=== PATIENT | female | born 1965 | race African-American/Black ===

== ENCOUNTER 2023-10-09 13:12 | Outpatient (AMB) | payer OTHER, SELFPAY ==
--- NOTE | 2023-10-09 13:15 | MHC.OFFVIS ---
Intake Vital Signs 10/09/23 13:27 Height 5 ft 7 in Weight 240 lb 8 oz BMI 37.7 BP 124/76 Blood Pressure Location Lt brachial Position Sitting Respiration 17 Pulse 62 Pulse Source Pulse Oximeter Pulse Oximetry (%) 96 Oxygen Delivery Method Room Air Intake Visit Reasons: E-OUTREACH REPRESENTATIVE: Meralgia Peresthetica on L. thigh-Conf Intake Note: Pt presents to the office for new pt evaluation for Meralgia paresthetica. Alcohol Still Operator Required: No Allergies Penicillins Allergy (Intermediate, Verified 10/09/23 13:23) Rash Medication List - Last Reconciled 10/09/23 by Motnserrat Dahl MD amlodipine 5 mg PO DAILY bupropion HCl 150 mg PO QAM cetirizine 10 mg PO DAILY PRN levothyroxine 175 mcg PO DAILY meclizine 25 mg PO DAILY PRN HPI HPI Comments History of Present Illness Details 58y/o female comes for evaluation of left thigh numbness and tingling that started about 6 months ago. It is episodic and is usually worse when she walks . she says its mostly in the upper lateral and anterior thigh. SHe also reports intermittent burning sensation.she thought that it was shingles but she did not have a rash . she denies weakness or any shooting pain from the back. she also has occasional lower back pain and stiffness. Rest usually helps with the left thigh numbness . Occasionally she wakes up in the middle of the night. she had started to exercise and walk more about 7 months ago . she denies wearing any tight clothes. she also has loud snoring , morning fatigue and daytime sleepiness. [facility] Medical History (Updated 10/09/23 @ 14:13 by Montserrat Dahl MD) Hypersomnia Snoring Meralgia paresthetica of left side Anxiety Depression Hyperlipidemia Hypothyroidism HTN (hypertension) Prediabetes Colonic polyp Osteoarthritis Obesity Carpal tunnel syndrome Surgical History H/O colonoscopy Hx of tubal ligation History of ankle surgery Family History Father No problems noted. Mother No problems noted. Social History Household Members: Family Housing: House Alcohol intake: current Alcohol intake frequency: a few times a month Patient Tobacco Use Status: Never used Tobacco Physical Exam Vital Signs: Last Vital Signs Pulse 62 10/09/23 13:27 Resp 17 10/09/23 13:27 BP 124/76 10/09/23 13:27 Pulse Ox 96 10/09/23 13:27 Oxygen Delivery Method Room Air 10/09/23 13:27 BMI result Body Mass Index 37.7 Const General: cooperative, healthy appearing and comfortable Nutritional Appearance: obese Orientation/consciousness: patient oriented x3 Eyes Pupils: Equal, round and reactive pupils present Neuro Other: left lateral thing mild dysthesias in the mid thigh region Mallampatti grade 4 General: patient oriented x3, gait normal, tone normal, moves all extremities and no focal motor deficits Cranial nerves: Yes Facial sensation intact/muscles of mastication intact, Yes Equal, round and reactive pupils present, Yes Bilaterally intact EOM present, Yes Nystagmus not present, Yes Normal facial strength present and Yes Symmetric palate elevation present Cognition (Neuro): normal cognition Gait exam (Neuro): Normal gait present Motor exam (neuro): 5/5 motor strength present throughout and Normal motor muscle tone present throughout Deep tendon reflexes (DTR's): Right triceps reflex intensity grade: 1+, Left triceps reflex intensity grade: 1+, Rt Biceps (C5, C6): 1+, Left biceps reflex intensity grade: 1+, Right brachioradialis reflex intensity grade: 1+, Left brachioradialis reflex intensity grade: 1+, Right patellar reflex intensity grade: 1+ and Left patellar reflex intensity grade: 1+ Coordination: [id number] test normal Assessment & Plan Assessment & Plan (1) Meralgia paresthetica of left side: Code(s): G57.12 - Meralgia paresthetica, left lower limb (2) Snoring: Code(s): R06.83 - Snoring (3) Hypersomnia: Code(s): G47.10 - Hypersomnia, unspecified Plan Her symptoms are mild. I suggested wearing loose fitting clothes and some exercises and will monitor I will schedule her for home sleep test to r/o sleep apnea. Orders: Orders RT home sleep study Today G47.10 - Hypersomnia, unspecified, R06.83 - Snoring Coding Level of Care Code New Pt Level 4 (24030) Diagnoses Meralgia paresthetica of left side G57.12 Snoring R06.83 Hypersomnia G47.10
[2023-10-09 13:27] VITALS: BP 124/76; PULSE 62; RESP 17; O2SAT 96; BMI 37.7
== END 2023-10-09 14:08 | disposition home or self-care (01) ==
PROVIDERS: PCP Internal Medicine; Referring Provider Internal Medicine; Visit Provider Psychiatry & Neurology Neurology
DX: G57.12 Meralgia paresthetica, left lower limb (principal); R06.83 Snoring; G47.10 Hypersomnia, unspecified
CPT/HCPCS: 99204

== ENCOUNTER → 2023-10-09 13:12 | Outpatient (BNVA) | payer OTHER, SELFPAY | PROVIDERS: PCP Internal Medicine; Referring Provider Internal Medicine; Visit Provider Psychiatry & Neurology Neurology | DX: G57.12 Meralgia paresthetica, left lower limb (principal); R06.83 Snoring; G47.10 Hypersomnia, unspecified | CPT/HCPCS: 99202 ==

== ENCOUNTER → 2023-11-14 15:07 | Outpatient (REF) | payer OTHER, SELFPAY | LOC: HO.SL 15:07 | PROVIDERS: PCP Student in an Organized Health Care Education/Training Program; Visit Provider Psychiatry & Neurology Neurology | DX: G47.33 Obstructive sleep apnea (adult) (pediatric) (principal); G47.10 Hypersomnia, unspecified; R06.83 Snoring | CPT/HCPCS: 95806 ==

== ENCOUNTER → 2023-11-14 15:26 | Outpatient (BNV) | payer OTHER, SELFPAY | PROVIDERS: PCP Student in an Organized Health Care Education/Training Program; Visit Provider Internal Medicine | DX: G47.33 Obstructive sleep apnea (adult) (pediatric) (principal) | CPT/HCPCS: 95806 ==

== ENCOUNTER 2024-06-13 13:04 | Outpatient (AMB) | payer MEDICAID, SELFPAY ==
--- NOTE | 2024-06-13 13:42 | MHC.OFFVIS ---
Vital Signs 06/13/24 13:43 Height 5 ft 7 in Weight 246 lb BMI 38.5 Intake Visit Reasons: 4 mo f/u Meralgia peresthtica on L.tight Intake Note: Patient presents for 4 month follow up. patient couldn't do the machine patient informed to take it back. Allergies Penicillins Allergy (Intermediate, Verified 06/13/24 13:45) Rash HPI Comments Details: 58-yr-old female presents for f/u visit. Pt denies any significant interval medical changes. Pt reports she is no longer having left thigh paresthesias. She was walking, exercising more but her right ankle hardware was bothering her so has not been walking as much. She had HST which showed mild JEREMY w/ AHI 12/hr and average SpO2 94% w/ O2 han 75% (SpO2 < 88% x's 8 min)- pt slept supine for entire study. She tried APAP, but has not been tolerating full face mask. Note she used to sleep prone or on her side, but since the HST and during the HST- she has been sleeping on her back. [facility] Medical History Hypersomnia Snoring Meralgia paresthetica of left side Anxiety Depression Hyperlipidemia Hypothyroidism HTN (hypertension) Prediabetes Colonic polyp Osteoarthritis Obesity Carpal tunnel syndrome Surgical History H/O colonoscopy Hx of tubal ligation History of ankle surgery Family History Father No problems noted. Mother No problems noted. Social History Household Members: Family Housing: House Alcohol intake: current Alcohol intake frequency: a few times a month Patient Tobacco Use Status: Never used Tobacco Physical Exam Vital Signs: BMI result Body Mass Index 38.5 Const General: cooperative and no acute distress Orientation/consciousness: patient oriented x3 Resp Effort & Inspection: normal respiratory effort and able to speak in complete sentences Neuro General: patient oriented x3 Cranial nerves: Yes CN's II-XII intact bilaterally Cognition (Neuro): normal cognition Psych Appearance: grossly normal Mental Status: mental status grossly normal Speech and movement: Normal speech and movement present Affect: normal affect Attitude: cooperative Assessment & Plan Assessment & Plan (1) Mild obstructive sleep apnea: Code(s): G47.33 - Obstructive sleep apnea (adult) (pediatric) Category: Medical (2) Meralgia paresthetica of left side: Code(s): G57.12 - Meralgia paresthetica, left lower limb Category: Medical Plan Try using APAP [id number] with sleeping on her side or in prone position. If this is not helpful, pt may return PAP machine. Advised to sleep prone or in lateral postion, and try weight loss as even a 10% wt reduction can reduce JEREMY s/s- discussed trying orthopedic sneakers to improve activity tolerance. Monitor left thigh paresthesias- no current symptoms. Coding Level of Care Code Est Pt Level 3 (90022) Diagnoses Mild obstructive sleep apnea G47.33 Meralgia paresthetica of left side G57.12
[2024-06-13 13:43] VITALS: BMI 38.5
== END 2024-06-13 14:20 | disposition home or self-care (01) ==
PROVIDERS: Absent Provider Nurse Practitioner Family; PCP Internal Medicine; Visit Provider Nurse Practitioner Family
DX: G47.33 Obstructive sleep apnea (adult) (pediatric) (principal); G57.12 Meralgia paresthetica, left lower limb
CPT/HCPCS: 99213

== ENCOUNTER → 2024-06-13 13:04 | Outpatient (BNVA) | payer MEDICAID, SELFPAY | PROVIDERS: Absent Provider Nurse Practitioner Family; PCP Internal Medicine; Visit Provider Nurse Practitioner Family | DX: G47.33 Obstructive sleep apnea (adult) (pediatric) (principal); Z99.89 Dependence on other enabling machines and devices | CPT/HCPCS: 99212 ==

== ENCOUNTER 2024-12-10 14:27 | Outpatient (AMB) | payer MEDICARE, SELFPAY ==
--- NOTE | 2024-12-10 14:31 | A.OFFVIS_ITS ---
Vital Signs 12/10/24 14:32 Height 5 ft 7 in Weight 250 lb BMI 39.2 BP 126/70 Blood Pressure Location Rt brachial Position Sitting Pulse 72 Pulse Source Pulse Oximeter Pulse Oximetry (%) 98 Oxygen Delivery Method Room Air Intake Visit Reasons: Follow up Intake Note: Patient presents follow up JEREMY. non compliant Purification Director Required: No Accompanied by: Self / Same As Patient Allergies Penicillins Allergy (Intermediate, Verified 06/13/24 13:45) Rash Medication List - Last Reconciled 12/10/24 by AMADO Cortez amlodipine 5 mg PO DAILY bupropion HCl XL 150 mg PO QAM cetirizine 10 mg PO DAILY PRN levothyroxine 175 mcg PO DAILY meclizine 25 mg PO DAILY PRN HPI Comments Details: Chief Complaint Follow-up for sleep apnea and previous issues and left thigh paresthesia. Interval History - The patient is a 59 year old female presenting with follow-up for obstructive sleep apnea and left thigh paresthesia. - Denies new health issues, hospitalizations. - Obstructive Sleep Apnea: Previous issues with CPAP machine noted- she did not tolerate wearing a CPAP mask. . Patient has not used the CPAP, since last visit, as she thought that I had told her she did not need to use the CPAP if she slept on her side or on her stomach. I clarified that at the last visit, I suggested she try using the CPAP while sleeping on her side. The previous sleep study showed mild sleep apnea, however patient slept in the supine position throughout the study, where she normally sleeps in a lateral or prone position- thus the prior HST likely does not accurately effect the degree of sleep apnea patient is experiencing on a night tonight basis. 11/14/2023, HST which showed mild JEREMY w/ AHI 12/hr and average SpO2 94% w/ O2 han 75% (SpO2 < 88% x's 8 min)- pt slept supine for entire study. - Left Thigh Paresthesia: Reports numbness and tingling have recurred since the last consultation. [facility] Medical History Hypersomnia Snoring Meralgia paresthetica of left side Anxiety Depression Hyperlipidemia Hypothyroidism HTN (hypertension) Prediabetes Colonic polyp Osteoarthritis Obesity Carpal tunnel syndrome Surgical History H/O colonoscopy Hx of tubal ligation History of ankle surgery Family History Father No problems noted. Mother No problems noted. Social History Household Members: Family Housing: House Alcohol intake: current Alcohol intake frequency: a few times a month Patient Tobacco Use Status: Never used Tobacco Physical Exam Vital Signs: Last Vital Signs Pulse 72 12/10/24 14:32 BP 126/70 12/10/24 14:32 Pulse Ox 98 12/10/24 14:32 Oxygen Delivery Method Room Air 12/10/24 14:32 BMI result Body Mass Index 39.2 Const General: cooperative and no acute distress Orientation/consciousness: patient oriented x3 Resp Effort & Inspection: normal respiratory effort and able to speak in complete sentences Neuro General: patient oriented x3 Cranial nerves: Yes CN's II-XII intact bilaterally Cognition (Neuro): normal cognition Psych Appearance: grossly normal Mental Status: mental status grossly normal Speech and movement: Normal speech and movement present Affect: normal affect Attitude: cooperative Assessment & Plan Assessment & Plan (1) Mild obstructive sleep apnea: Code(s): G47.33 - Obstructive sleep apnea (adult) (pediatric) Category: Medical (2) Meralgia paresthetica of left side: Code(s): G57.12 - Meralgia paresthetica, left lower limb Category: Medical (3) Obesity: Code(s): E66.9 - Obesity, unspecified Category: Medical Plan Discussion Notes I discussed the possibility of the patient undergoing a repeat sleep study to better ascertain the status of her obstructive sleep apnea while she sleeps in her typical position, preferably on her side. I outlined the procedure for an in-lab sleep study, which includes overnight monitoring with electrodes and other measurements. I addressed any concerns about potential difficulties sleeping in the facility, reassured her that it's rare for patients not to sleep, and discussed standard overnight timing. We also covered the option of ENT consultation if the apnea persists and appears mild post-study, given that non-severe cases might benefit from specialist review. We agree to further evaluate in the next six months after review ENT consult and follow-up in-lab PSG study. Patient was informed and verbally consented to the use of an ambient scribe for clinic note documentation during this visit. Plan For obstructive sleep apnea: Recommend in-lab sleep study to assess full degree of sleep apnea with patient is sleeping in her preferred sleeping position. ENT consult as above For Left thigh paresthesia: Resolved; no further intervention needed at this time. Will monitor. Orders: Orders RT PSG in-lab sleep study Today E66.9 - Obesity, unspecified, G47.10 - Hypersomnia, unspecified, G47.33 - Obstructive sleep apnea (adult) (pediatric), R06.83 - Snoring Referrals Ear/Nose/Throat Referral G47.33 - Obstructive sleep apnea (adult) (pediatric), R06.83 - Snoring Coding Level of Care Code Est Pt Level 4 (21795) Diagnoses Mild obstructive sleep apnea G47.33 Meralgia paresthetica of left side G57.12 Obesity E66.9
[2024-12-10 14:32] VITALS: BP 126/70; PULSE 72; O2SAT 98; BMI 39.2
--- OUTSIDE RECORDS SUMMARY | 2024-12-10 17:23 | XMS_ITS | Data Portability ---
Author Organization [place] - [facility], Allergy Address [address] [address] Care Team Providers Care Commercial Loan Officer Name Role Phone JOSE ENRIQUE BRANCH Primary Care Provider Assessment Encounter Date Assessment Date Assessment LastModified by Organization Details LastModified Time 10/27/2024 10/27/2024 59-year-old female presents for evaluation of the ears. Patient reports bilateral tinnitus for 2 months. She has intermittent right otalgia. Cerumen impaction removed from right EAC, which patient tolerated well. Otologic exam demonstrated TMs are intact with well-aerated middle ear spaces. Audiometric testing offered to investigate neurosensory hearing loss, but patient would prefer to return for testing on another day. She will return for formal hearing evaluation. [email or web address] Not available 10/27/2024 17:59:17 11/19/2024 11/19/2024 59-year-old female with left-sided high-frequency SNHL, tinnitus, and TMJ presents for evaluation of the ears. Otologic exam demonstrates TMs are intact with well-aerated middle ear spaces. Audiogram is stable compared to testing performed in 2021, reviewed with patient. MRI of the IACs in 2021 did not demonstrate retrocochlear pathology. Patient is not a candidate for amplification. She will follow-up in our office as needed, and is aware to return with any sudden changes to her hearing. [email or web address] Not available 11/19/2024 14:18:36 Plan of Treatment Reminders Order Date Submit Date Provider Last Modified By Organization Details Last Modified Time Details Appointments None record ed. Lab None record ed. Referral None record ed. Procedures None record ed. Surgeries None record ed. Imaging None record ed. Medication Orders None record ed. Patient TargetsNo targets recorded. Patient InstructionsNo instructions recorded. Reason for Referral None Reported. Problems Name Problem SNOMED Code Status Onset Date Resolution Date Notes Provider Name and Address Organization Details Recorded Time Sensorin eural hearing loss 42541322 Active 2021 Sensorin eural hearing loss, unilater al, left ear, with unrestri cted hearing on the contrala teral side; Note: Date Diagnose d: 2 2:27 PM (H90.42) Not Available [facility] 4 02:27:34 Dizzines s and giddines s [id number] Completed 202105/09/2024 Dizzines s and giddines s; Note: Date Diagnose d: 2 2:27 PM (R42) Not Available [facility] 4 02:27:46 Bilatera l tinnitus 49030534574 02 Active 2024 ANASTASIIA CROWLEY PA-C [address] [place] [address],[place] [address], [place], [address] , [facility] - [facility] 5 14:17:54 Impacted cerumen in left ear 20999772343 71911 Active 2024 ANASTASIIA CROWLEY PA-C [address] [place] [address],[place] [address], [place], [address] , [facility] [place] 5 14:18:42 Impacted cerumen in right ear 05689073159 62955 Active 2024 ANASTASIIA CROWLEY PA-C [address] [place] [address],[place] [address], [facility], [address] , [facility] - [facility] [place] 5 17:58:50 Otalgia of right ear 9136240374 Active 2024 ANASTASIIA CROWLEY PA-C 100 [facility],[place] [address], [place], [address] , [facility] 5 17:59:03 Problem Notes None recorded. Procedures Surgical History Date Name Laterality Status Provider Name and Address Organization Details Recorded Time 5 Air & Speech Audio with Tymps (96942, 56943 & 16112) completed SADAF CHAVEZ [facility] 100, [place], [address], [facility] - [facility] 11/19/2024 13:56:22 5 Cerumen removal without microscope right completed [facility]NASTASIIA CROWLEY PA-C 100 [facility] [place],[facility] 100, [place], [address], [facility] 10/27/2024 14:17:29 Imaging Results None recorded. Procedure Notes None recorded. Medical Equipment None Reported. Allergies Allergen ID Allergen Name Allergen Category Reaction Reaction Severity Criticality Documentation Date Start Date Code Code System Note Provider Name and Address Organization Details Recorded Time 29771 Product containin g penicilli n (product) medicatio n other Not available Not available 02/19/2024 20297 8001 SNOMED React ion: Unkno wn; Not Available [facility] 4 00:54:55 00700 hydrochlo rothiazid e medicatio n other Not available Not available 02/19/2024 5487 RxNorm React ion: Unkno wn; Not Available [facility] 4 00:54:58 Medications Name Sig Start Date Stop Date Status Note LastModified by Organization Details LastModified Time levothyro xine 175 mcg tablet TAKE 1 TABLET BY MOUTH ONLY FROM MONDAYS TO FRIDAYS. 5 TABLETS A WEEK. 10/27 completed Not Available Not Available Not Available bupropion HCl SR 150 mg tablet,12 hr sustained -release 10/27 completed Medicati on ID: [id number] B rand Name: bupropio n HCl Send Method: E-Prescr ibed Sub s Allowed: subs OK Medic ationGen ericName : bupropio n HCl Not Available Not Available Not Available atorvasta tin 20 mg tablet TAKE 1 TABLET (20 MG TOTAL) BY MOUTH ONE TIME EACH DAY active Not Available Not Available No t Available clindamyc in HCl 300 mg capsule TAKE 1 CAPSULE BY MOUTH EVERY 6 HOURS 10/27 completed Not Available Not Available Not Available cetirizin e 10 mg tablet TAKE 1 TABLET BY MOUTH DAILY NEEDED FOR ALLERGIE S. 10/27 completed Not Available Not Available Not Available atorvasta tin 10 mg tablet active Medicati on ID: [id number] B rand Name: atorvast atin Sen d Method: E-Prescr ibed Sub s Allowed: subs OK Medic ationGen ericName : atorvast atin Not Available Not Available Not Available ibuprofen 800 mg tablet 10/27 completed Medicati on ID: [id number] B rand Name: ibuprofe n Send Method: E-Prescr ibed Sub s Allowed: subs OK Medic ationGen ericName : ibuprofe n Not Available Not Available Not Available meloxicam 15 mg tablet TAKE 1 TABLET BY MOUTH EVERY DAY active Not Available Not Available No t Available prednison e 20 mg tablet 10/27 completed Medicati on ID: [id number] B rand Name: predniso ne Send Method: E-Prescr ibed Sub s Allowed: subs OK Medic ationGen ericName : predniso ne Not Available Not Available Not Available clindamyc in HCl 150 mg capsule TAKE 1 CAPSULE BY MOUTH THREE TIMES A DAY 10/27 completed Not Available Not Available Not Available amlodipin e 5 mg tablet TAKE 1 TABLET BY MOUTH 1 TIME EACH DAY. active Not Available Not Available No t Available bupropion HCl SR 100 mg tablet,12 hr sustained -release TAKE 1 TABLET BY MOUTH 2 TIMES A DAY DO NOT CRUSH, CHEW, OR SPIT active Not Available Not Available No t Available oxycodone -acetamin ophen 5 mg-325 mg tablet TAKE 1 TABLET EVERY 6 HOURS NEEDED FOR PAIN 10/27 completed Not Available Not Available Not Available meclizine 25 mg tablet TAKE 1 TABLET (ORAL) 3 TIMES PER DAY NEEDED active Not Available Not Available No t Available levothyro xine 150 mcg tablet TAKE 1 TABLET BY MOUTH 1 TIME EACH DAY. active Not Available Not Available No t Available ergocalci ferol (vitamin D2) 1,250 mcg (50,000 unit) capsule TAKE 1 CAPSULE BY MOUTH ONE TIME PER WEEK 10/27 completed Not Available Not Available Not Available ibuprofen 600 mg tablet TAKE 1 TABLET 4 TIMES A DAY WITH MEALS NEEDED 10/27 completed Not Available Not Available Not Available fluticaso ne propionat e 50 mcg/actua tion nasal spray,john pension USE 2 SPRAYS INTO EACH NOSTRIL TWICE A DAY 10/27 completed Not Available Not Available Not Available Murine Ear 6.5 % drops PLACE 5 DROPS IN BOTH EARS 2 TIMES DAILY FOR 10 DAYS.TIL T TREATED EAR TOWARD CEILING. USE COTTON BALL 10/27 completed Not Available Not Available Not Available naproxen 500 mg tablet 10/27 completed Medicati on ID: [id number] B rand Name: naproxen Send Method: E-Prescr ibed Sub s Allowed: subs OK Medic ationGen ericName : naproxen Not Available Not Available Not Available amoxicill in 875 mg-potass ium clavulana te 125 mg tablet TAKE 1 TABLET BY MOUTH TWICE A DAY FOR 7 DAYS 10/27 completed Not Available Not Available Not Available chlorhexi dine gluconate 0.12 % mouthwash RINSE MOUTH WITH 15ML (1 CAPFUL) FOR 30 SECONDS IN MORNING AND EVENING AFTER BRUSHING , THEN SPIT 10/27 completed Not Available Not Available Not Available cholecalc iferol (vitamin D3) 50 mcg (2,000 unit) capsule TAKE 1 CAPSULE BY MOUTH EVERY DAY active Not Available Not Available No t Available Vitals Date Recorded Body height Body mass index (BMI) Body weight Provider Name and Address Organization Details Last Updated DateTime 10/27/2024 170.18 cm 39 kg/m2 073150.5 g Zohreh Pierson [place] - [facility] 10/27/2024 13:46:36 Date Recorded Body height Body mass index (BMI) Body weight Provider Name and Address Organization Details Last Updated DateTime 11/19/2024 170.18 cm 38.1 kg/m2 086703.95 g Lisa Elder [place] - [facility] 11/19/2024 14:06:57 Social History None recorded. Functional Status None recorded. Mental Status None recorded. Family History Nothing Reported. Medical History Condition Response Migraines Y Anxiety Y Thyroid Problems Y Hypertension Y Depression Y Gynecological HistoryNo gynecological history recorded. Obstetrics History GPAL:G 0 P 0 0 0 0 Past Encounters Encounter ID Performer Location Encounter Start Date Encounter Closed Date Diagnosis/Indication Diagnosis SNOMED-CT Code Diagnosis ICD10 Code Diagnosis Note [id number] DANIEL SON MD [facility] 100 [place] [address] 10/27/2024 13:03:55 10/27/2024 14:19:28 Bilateral tinnitus 1872504756 102 H93.13 Impacted c erumen in right ear 0971673861 010931 H61.21 Otalgia of right ear 385 1568067 H92.01 Physical exam reveals no identifiab le source of otalgia involving the auricle, external auditory canal, or tympanic membrane. Examinatio n was positive for tenderness of the jaw joint and earle-TMJ musculatur e bilaterall y. The patient's auricular discomfort is most likely consistent with intermitte nt inflammati on of the jaw joint or spasm of the surroundin g musculatur e. I recommende d the patient use light massage, warm compresses and anti-infla mmatories for symptomati c management . Stressed chewing evenly on both sides of the mouth to keep from overworkin g the jaw joint. Use soft food diet as needed. Jaw Joint Program informatio n sheet was shared. [id number] KENNY FERNÁNDEZ MD [facility] of [address] [address] 11/19/2024 13:21:53 11/19/2024 14:17:22 Bilateral tinnitus [id number] 102 H93.13 Sensorineu ral hearing loss 00085834 H90.42 left [id number] SADAF CHAVEZ [facility] of [address] [address] 11/19/2024 13:21:53 11/19/2024 14:17:22 Sensorineural hearing loss 09948844 H90.42 Audiologic al evaluation results: Right ear: {{Normal* Normal through 2 kHz Mild M oderate Mo derately-s evere [place] re Profoun d}} {{hearing* hearing. sloping to a mild slopi ng to a moderate s loping to moderately severe slo ping to severe slo ping to profound f lat high frequency low frequency mid frequency cookie bite donovan curve}} {{with* se nsorineura l hearing loss with condu ctive hearing loss with mixed hearing loss with}} {{excellen t* good fa ir poor no measurable }} word recognitio n. Left ear: {{Normal* Normal through 2 kHz Mild M oderate Mo derately-s evere [place] re Profoun d}} {{hearing hearing. s loping to a mild slopi ng to a moderate s loping to moderately severe slo ping to severe slo ping to profound f lat high frequency low frequency mid frequency cookie bite donovan curve with the exception of a mild SNHL at 4000Hz#}} {{with* se nsorineura l hearing loss with condu ctive hearing loss with mixed hearing loss with}} {{excellen t* good fa ir poor no measurable }} word recognitio n. Tympanomet ry: Right Ear:{{Type A* Type As Type Ad Type C Type C, shallow & rounded Ty pe B Type B with large volume Cou ld not maintain a hermetic seal}} Left Ear:{{Type A* Type As Type Ad Type C Type C, shallow & rounded Ty pe B Type B with large volume Cou ld not maintain a hermetic seal}} Health Concerns Section Related Observation LastModified by Organization Detai ls LastModified Time None Recorded Concern Status LastModified by Organization Details LastModified Time None Recorded Advance Directives Directive None Recorded Payers Encounter Date Sequence Insurance Name Policy Number Policy Sorenson Covered Member ID Sorenson Member ID Guarantor Name 10/27/2024 2 [place] [facility] Doreen Adam [id number] Doreen Adam 10/27/2024 1 [place] B[place] [employer] Doreen Adam [id number] Doreen Adam 11/19/2024 2 [place] [employer] [facility] Doreen Adam [id number] Doreen Adam 11/19/2024 1 [place] [employer] Doreen Adam [id number] Doreen Adam 11/19/2024 2 [place] [facility] Doreen Adam [id number] Doreen Adam 11/19/2024 1 [place] [employer] Doreen Adam [id number] Doreen Adam Notes Date Note Type Note Provider Name and Address Organization Details Recorded Time 10/27/2024 text/html 59yo female presents for evaluation of the ears. She reports bilateral tinnitus started 2 months ago without inciting event. She endorses intermittent right ear pain. Denies hearing loss or otorrhea. Denies prior ear infections or ear surgeries. No history of loud noise exposure. DANIEL QUIÑONEZ MD 100 [facility],[address], [address], [facility] 10/28/2024 08:29:45 11/19/2024 text/html 59-year-old fema le with left-sided high-frequency SNHL, tinnitus, and TMJ presents for evaluation of the ears. She denies noticable hearing loss. Reports intermittent bilateral tinnitus has improved. Denies otalgia, otorrhea, or dizziness. KENNY FERNÁNDEZ MD 100 [facility],[place] [address], [place], [address], [facility] 11/19/2024 17:43:19 OBGyn Episode No OBEpisode recorded.
--- OUTSIDE RECORDS SUMMARY | 2024-12-10 17:23 | XMS_ITS | Continuity of Care Document ---
Author Organization [place] - [facility], [facility] Address [address] [place] [address] Care Team Providers Care Beam Dyer Recessed Vat Name Role Phone JOSE ENRIQUE BRANCH Primary Care Provider Assessment No assessment recorded. Plan of Treatment Reminders Order Date Submit [...] Details Recorded Time Sensorin eural hearing loss 25609568 Active 2021 Sensorin eural hearing loss, unilater al, left ear, with unrestri cted hearing on the contrala teral side; Note: Date Diagnose d: 2 2:27 PM (H90.42) Not Available [facility] 4 02:27:34 Dizzines s and giddines s 453056966 Completed 202105/09/2024 Dizzines s and giddines s; Note: Date Diagnose d: 2 2:27 PM (R42) Not Available [facility] 4 02:27:46 Bilatera l tinnitus 76615093382 02 Active 2024 ANASTASIIA CROWLEY PA-C [address] [place] [address], [facility] [place], [address] , [place] - [facility] 5 14:17:54 Impacted cerumen in left ear 24792743700 11661 Active 2024 ANASTASIIA CROWLEY PA-C 100 [facility] [place] [address], [place], [address] , [facility] - [facility] [place] 5 14:18:42 Impacted cerumen in right ear 17649363676 75029 Active 2024 ANASTASIIA CROWLEY PA-C [address] [facility] [place] [address], [place], [address] , [facility] - [facility] [place] 5 17:58:50 Otalgia of right ear 3402177713 Active 2024 ANASTASIIA CROWLEY PA-C [address] [facility] [place] [address], [place], [address] , [facility] - [facility] [place] 5 17:59:03 Problem Notes None recorded. Procedures Surgical History Date Name Laterality Status Provider Name and Address Organization Details Recorded Time 5 Air & Speech Audio with Tymps (69195, 18847 & 44767) completed SADAF CHAVEZ 100 [facility],[place] [address], [place], [address], [facility] - [facility] 11/19/2024 13:56:22 5 Cerumen removal without microscope right completed ANASTASIIA CROWLEY PA-C 100 [facility],[address], [address], [facility] - [facility] 10/27/2024 14:17:29 Imaging Results None recorded. Procedure Notes None recorded. Medical Equipment None Reported. Allergies Allergen ID Allergen Name Allergen Category Reaction Reaction Severity Criticality Documentation Date Start Date Code Code System Note Provider Name and Address Organization Details Recorded Time 14895 Product containin g penicilli n (product) medicatio n other Not available Not available 02/19/2024 51922 8001 SNOMED React ion: Unkno wn; Not Available [facility] 00:54:55 84063 hydrochlo rothiazid e medicatio n other Not available Not available 02/19/2024 5487 RxNorm React ion: Unkno wn; Not Available [facility] 4 00:54:58 Medications Name Sig Start Date Stop Date Status Note LastModified by Organization Details LastModified Time levothyro xine 175 mcg tablet TAKE 1 TABLET BY MOUTH ONLY FROM MONDAYS TO FRIDAYS. 5 TABLETS A WEEK. 10/27 completed Not Available Not Available Not Available bupropion HCl SR 150 mg tablet,12 hr sustained -release 10/27 completed Medicati on ID: [id number] B rand Name: bupropio n HCl Send [...] 10 mg tablet active Medicati on ID: [id number] B rand Name: atorvast atin Sen d Method: E-Prescr ibed Sub s Allowed: subs OK Medic ationGen ericName : atorvast atin Not Available Not Available Not Available ibuprofen 800 mg tablet 10/27 completed Medicati on ID: [id number] B rand Name: ibuprofe n Send Method: E-Prescr ibed Sub s Allowed: subs OK Medic ationGen ericName : ibuprofe n Not Available Not Available Not Available meloxicam 15 mg tablet TAKE 1 TABLET BY MOUTH EVERY DAY active Not Available Not Available No t Available prednison e 20 mg tablet 10/27 completed Medicati on ID: [id number] B rand Name: predniso ne Send Method: [...] mg tablet 10/27 completed Medicati on ID: [id number] B rand Name: naproxen Send Method: E-Prescr [...] Updated DateTime 11/19/2024 170.18 cm 38.1 kg/m2 427883.95 g Lisa Elder [place] - [facility] 11/19/2024 14:06:57 Social History None recorded. Functional Status None recorded. Mental Status None recorded. Family History Nothing Reported. Medical History Condition Response Depression Y Anxiety Y Migraines Y Thyroid Problems Y Hypertension Y Gynecological HistoryNo gynecological history recorded. Obstetrics History GPAL:G 0 P 0 0 0 0 Past Encounters Encounter ID Performer Location Encounter Start Date Encounter Closed Date Diagnosis/Indication Diagnosis SNOMED-CT Code Diagnosis ICD10 Code Diagnosis Note [id number] DANIEL SON MD [facility] 100 [place] [address] 10/27/2024 13:03:55 10/27/2024 14:19:28 Bilateral tinnitus 3362110913 102 H93.13 Impacted c erumen in right ear 0938553237 025438 H61.21 Otalgia of right ear 927 3870814 H92.01 Physical exam reveals no identifiab le [...] Joint Program informatio n sheet was shared. [id number] KENNY FERNÁNDEZ MD [facility] 100 [place] [address] 11/19/2024 13:21:53 11/19/2024 14:17:22 Bilateral tinnitus 9606891679 102 H93.13 Sensorineu ral hearing loss 16611057 H90.42 left [id number] SADAF CHAVEZ [facility] 100 [place] [address] 11/19/2024 13:21:53 11/19/2024 14:17:22 Sensorineural hearing loss 45370431 H90.42 Audiologic al evaluation results: Right ear: [...] by Organization Details LastModified Time None Recorded Payers Encounter Date Sequence Insurance Name Policy Number Policy Sorenson Covered Member ID Sorenson Member ID Guarantor Name 11/19/2024 2 [place] Doreen Adam [id number] Doreen Adam 11/19/2024 1 [place] B[place] [employer] Doreen Adam [id number] Doreen Adam Notes Date Note Type Note Provider Name and Address Organization Details Recorded Time 11/19/2024 text/html 59-year-old femjackie hardy with left-sided high-frequency SNHL, tinnitus, and TMJ presents for evaluation of the ears. She denies noticable hearing loss. Reports intermittent bilateral tinnitus has improved. Denies otalgia, otorrhea, or dizziness. KENNY FERNÁNDEZ MD [address] [place] [address], [address], [facility] - [facility] 11/19/2024 17:43:19 OBGyn Episode No OBEpisode recorded.
--- OUTSIDE RECORDS SUMMARY | 2024-12-10 17:23 | XMS_ITS | Continuity of Care Document ---
Author Organization [place] - [facility], [facility] Address [address] [place] [address] Care Team Providers Care Lab Rn Name Role Phone JOSE ENRIQUE BRANCH Primary Care Provider Assessment Encounter Date Assessment Date Assessment LastModified by Organization Details LastModified Time 11/19/2024 11/19/2024 59-year-old female with left-sided high-frequency [...] Details Recorded Time Sensorin eural hearing loss 25482126 Active 2021 Sensorin eural hearing loss, unilater al, left ear, with unrestri cted hearing on the contrala teral side; Note: Date Diagnose d: 2 2:27 PM (H90.42) Not Available [facility] 4 02:27:34 Dizzines s and giddines s [id number] Completed 202105/09/2024 Dizzines s and giddines s; Note: Date Diagnose d: 2 2:27 PM (R42) Not Available [facility] 4 02:27:46 Bilatera l tinnitus 53816889570 02 Active 2024 ANASTASIIA CROWLEY PA-C [address],[place] [facility], [place], [address] , [place] - [facility] 5 14:17:54 Impacted cerumen in left ear 49447958044 Active 2024 ANASTASIIA CROWLEY PA-C [address], [place], [address] , [place] - [facility] 5 14:18:42 Impacted cerumen in right ear 16470308922 42092 Active 2024 ANASTASIIA CROWLEY PA-C [address],[place] [facility], [place], [address] , [place] - [facility] 5 17:58:50 Otalgia of right ear 9895618528 Active 2024 ANASTASIIA CROWLEY PA-C [address],[place] [address], [place], [address] , [place] - [facility] 5 17:59:03 Problem Notes None recorded. Procedures Surgical History Date Name Laterality Status Provider Name and Address Organization Details Recorded Time 5 Air & Speech Audio with Tymps (07203, 02826 & 74027) completed SADAF CHAVEZ [address],[place] [facility], [place], [address], [facility] - [facility] 11/19/2024 13:56:22 5 Cerumen removal without microscope right completed ANASTASIIA CROWLEY PA-C [address] [facility] [facility] [address] [place] [address], [place], [address], [place] - [facility] 10/27/2024 14:17:29 Imaging Results None recorded. Procedure Notes None recorded. Medical Equipment None Reported. Allergies Allergen ID Allergen Name Allergen Category Reaction Reaction Severity Criticality Documentation Date Start Date Code Code System Note Provider Name and Address Organization Details Recorded Time 41149 Product containin g penicilli n (product) medicatio n other Not available Not available 02/19/2024 16114 8001 SNOMED React ion: Unkno wn; Not Available [facility] 4 00:54:55 93475 hydrochlo rothiazid e medicatio n other Not available Not available 02/19/2024 5487 RxNorm React ion: Unkno wn; Not Available [facility] 4 00:54:58 Medications Name Sig Start Date Stop Date Status Note LastModified by Organization Details LastModified Time levothyro xine 175 mcg tablet TAKE 1 TABLET BY MOUTH ONLY FROM MONDAYS TO FRIDAYS. 5 TABLETS A WEEK. 10/27 completed Not Available Not Available Not Available bupropion HCl SR 150 mg tablet,12 hr sustained -release 10/27 completed Medicati on ID: [id number] B rand Name: bupropio n HCl Send [...] 10 mg tablet active Medicati on ID: [id number] B rand Name: atorvast atin Sen d Method: E-Prescr ibed Sub s Allowed: subs OK Medic ationGen ericName : atorvast atin Not Available Not Available Not Available ibuprofen 800 mg tablet 10/27 completed Medicati on ID: [id number] B rand Name: ibuprofe n Send Method: E-Prescr ibed Sub s Allowed: subs OK Medic ationGen ericName : ibuprofe n Not Available Not Available Not Available meloxicam 15 mg tablet TAKE 1 TABLET BY MOUTH EVERY DAY active Not Available Not Available No t Available prednison e 20 mg tablet 10/27 completed Medicati on ID: [id number] B rand Name: predniso ne Send Method: [...] mg tablet 10/27 completed Medicati on ID: [id number] B rand Name: naproxen Send Method: E-Prescr [...] Updated DateTime 11/19/2024 170.18 cm 38.1 kg/m2 573217.95 g Lisa Elder [place] - [facility] 11/19/2024 14:06:57 Social History None recorded. [...] SNOMED-CT Code Diagnosis ICD10 Code Diagnosis Note [id number] DANIEL SON MD [facility] of [address] [address] 10/27/2024 13:03:55 10/27/2024 14:19:28 Bilateral tinnitus 2283368289 102 H93.13 Impacted c erumen in right ear 0364052252 700990 H61.21 Otalgia of right ear 472 7072700 H92.01 Physical exam reveals no identifiab le [...] Joint Program informatio n sheet was shared. [id number] KENNY FERNÁNDEZ MD [facility] of [address] [place] [address] 11/19/2024 13:21:53 11/19/2024 14:17:22 Bilateral tinnitus 3860776675 102 H93.13 Sensorineu ral hearing loss 49869414 H90.42 left [id number] SADAF CHAVEZ [facility] [address] [place] [address] 11/19/2024 13:21:53 11/19/2024 14:17:22 Sensorineural hearing loss 26322453 H90.42 Audiologic al evaluation results: Right ear: [...] Name 11/19/2024 2 [place] Doreen Adam [id number] Doreen Adam 11/19/2024 1 [place] B-[place]: Decl[place] Doreen Adam [id number] Doreen Adam Notes Date Note Type Note Provider Name and Address Organization Details Recorded Time 11/19/2024 text/html 59-year-old fema le with left-sided high-frequency SNHL, tinnitus, and TMJ presents for evaluation of the ears. She denies noticable hearing loss. Reports intermittent bilateral tinnitus has improved. Denies otalgia, otorrhea, or dizziness. KENNY FERNÁNDEZ MD [address] [place] [address], [phone] - [facility] 11/19/2024 17:43:19 OBGyn Episode No OBEpisode recorded.
--- OUTSIDE RECORDS SUMMARY | 2024-12-10 17:23 | XMS_ITS | Clinical Summary ---
Author Organization [facility] Address [address] [place] [address] Phone Care Team Providers Care Engrosser Name Role Phone Yoana Unique PEREZ Primary Care Provider Allergies Active Allergy Reactions Criticality Noted Date Comments Penicillin V Potassium 08/14/2024 Hydrochlorothiazide 08/14/2024 Medications omeprazole (PriLOSEC) [address] capsule Take 1 capsule (40 mg total) by mouth 1 (one) time each day. Do not crush or chew. Active amLODIPine (NORVASC) 5 mg tablet Take 1 tablet (5 mg total) by mouth 1 (one) time each day. 90 each 3 08/14/2024 5 Active buPROPion SR (WELLBUTRIN SR) 100 mg 12 hr tablet Take 1 tablet (100 mg total) by mouth 2 (two) times a day. Do not crush, chew, or split. 180 each 08/14/2024 5 Active levothyroxine (SYNTHROID, LEVOTHROID) 150 mcg tablet Take 1 tablet (150 mcg total) by mouth 1 (one) time each day. 30 each 08/18/2024 5 Active cholecalciferol (Vitamin D3) 50 mcg (2,000 unit) capsule Take 1 capsule (2,000 Units total) by mouth 1 (one) time each day. 30 each 08/18/2024 5 Active atorvastatin (LIPITOR) 20 mg tablet Take 1 tablet (20 mg total) by mouth 1 (one) time each day. 30 each 11 08/18/2024 Active meloxicam (MOBIC) 15 mg tablet TAKE 1 TABLET BY MOUTH EVERY DAY 90 tablet 1 10/27/2024 Active Active Problems Problem Noted Date Diagnosed Date Primary hypertension 08/14/2024 Hypothyroidism 08/14/2024 Mixed hyperlipidemia 08/14/2024 Depression 08/14/2024 Polyp of colon 08/14/2024 Obesity (BMI 30-39.9) 08/14/2024 Encounters Date Type Department Care Team Description 09/11/2024 1:58 PM EST - 09/11/2024 11:59 PM EST Hospital [facility]counter [facility] [address] [address] Encounter for screening mammogram for malignant neoplasm of breast Discharge Disposition: Home or Self Care from Last 3 Months Surgical History Surgery Date Site/Laterality Comments TUBAL LIGATION PROCEDURE: HISTORICAL TUBAL LIGATION ANKLE SURGERY 2013 Right PROCEDURE: HISTORICAL ANKLE SURGERY; COMMENT: [facility] at [facility] OTHER SURGICAL HISTORY 06/18/2018 PROCEDURE: HISTORICAL D&C; COMMENT: Hadad; for post-menopausal bleeding. COLONOSCOPY 11/13/2018 PROCEDURE: HISTORICAL COLONOSCOPY; COMMENT: polyp Medical History Medical History Date Comments Depression 01/17/2018 DX:Depression Hyperlipidemia 03/22/2018 DX:Hyperlipidemi a Hypertension 03/22/2018 DX:Hypertension Hypothyroidism 01/17/2018 DX:Hypothyroidis m; COMMENT: Previously hyperthyroid - treated with PERKINS about 10 years Prediabetes DX:Prediabetes Colonic polyp 11/13/2018 DX:Colonic polyp ; COMMENT: Kalin. q5 years. Anxiety state DX:Anxiety state Vitamin D deficiency DX:Vitamin D deficiency Family History Medical History Relation Name Comments No Known Problems Brother Stomach cancer Father unsure Diabetes Maternal Grandmother COPD Mother Other cancer Paternal Grandmother will fi nd out what type Depression Sister 1 Thyroid disease Sister 2 2 Relation Name Status Comments Brother Alive Father Maternal Grandmother Mother Paternal Grandmother Sister 1 Sister 2 2 Alive Social History Tobacco Use Types Packs/Day Years Used Date Smoking Tobacco: Never Smokeless Tobacco: Never Tobacco Cessation:Counseling Given: Not Answered Alcohol Use Standard Drinks/Week Comments Yes 0 (1 standard drink = 0.6 oz pur e alcohol) Comments No Sex and Gender Information Value Date Recorded Sex Assigned at Female 09/10/2024 10:42 AM EST Legal Sex Female 9:27 AM EST Gender Identity Female 09/10/2024 10:42 AM EST Sexual Orientation Not on file Obstetrics History Para Term AB IAB SAB Ectopic Multiple Livin g Live Births 3 Last Filed Vital Signs Vital Sign Reading Time Taken Comments Blood Pressure 136/80 08/14/2024 11:25 AM EST Pulse 70 08/14/2024 11:25 AM EST Temperature 36.7 ??C (98 ??F) 08/14/2024 11:25 AM EST Respiratory Rate - - Oxygen Saturation 97% 08/14/2024 11:25 AM EST Inhaled Oxygen Concentration - - Weight 113 kg (250 lb) 09/11/2024 2:10 PM EST Height 170.2 cm (5' 7 ) 09/11/2024 2:10 PM EST Body Mass Index 39.16 09/11/2024 2:10 PM EST Plan of Treatment Upcoming Encounters Date Type Department Care Team (Late st Contact Info) Description 01/27/2025 1:30 PM EDT Appointment [facility] Endoscopy [address] [place] [phone] Vince Malcolm MD [address] [address] 09/04/2025 11:30 AM EST Office Visit Internal Medicine - [place] [address] [address] Unique Lees MD [address] [address] Health Maintenance Due Date Last Done Comments Hepatitis B Vaccines (1 of 3 - 19+ 3-dose series) 1985 Cervical Cancer Screening: Pap Smear 1987 Pneumococcal Vaccine: 50+ Years (1 of 1 - PCV) 2016 Zoster Vaccines (1 of 2) 2016 Colorectal Cancer Screening: Colonoscopy 09/16/2022 Depression Screening 09/16/2022 HIV Screening 09/16/2022 Hepatitis C Screening 09/16/2022 Medicare Annual Wellness Visit 09/16/2022 Social Influencers of Health Screening 09/16/2022 COVID-19 Vaccine (1 - season) 2024 Influenza Vaccine (#1) 2024 Hypertension/CHF/CAD Annual BMP Blood Test 08/14/2025 08/14/2024, 04/07/2024 Breast Cancer Screening 09/11/2026 09/11/20, 12/01/2021, 12/17/2019, Additional history exists DTaP,Tdap,and Td Vaccines (2 - Td or Tdap) 10/17/2028 10/17/2018 Cholesterol Screening (Lipid Panel) 08/14/2029 08/14/2024, 04/07/2024 HIB Vaccines Aged Out No longer eligi ble based on patient's age to complete this topic HPV Vaccines Aged Out No longer eligi ble based on patient's age to complete this topic Hepatitis A Vaccines Aged Out No long er eligible based on patient's age to complete this topic IPV Vaccines Aged Out No longer eligi ble based on patient's age to complete this topic MMR Vaccines Aged Out No longer eligi ble based on patient's age to complete this topic Meningococcal ACWY Vaccine Aged Out N o longer eligible based on patient's age to complete this topic Meningococcal B Vacine Aged Out No lo nger eligible based on patient's age to complete this topic Pneumococcal Vaccine: Pediatrics (0 to 5 Years) and At-Risk Patients (6 to 64 Years) Aged Out No longer eligible based on patient's age to complete this topic RSV Immunization Patients Under 20 months Aged Out No longer eligible based on patient's age to complete this topic Varicella Vaccines Aged Out No longer eligible based on patient's age to complete this topic Procedures Procedure Name Priority Date/Time Associated Diagnosis Comments THYROID STIMULATING HORMONE WITH REFLEX TO FREE T4 AND FREE T3 Routine 11/26/2024 3:19 PM EST Hypothyroidism, unspecified type MG MAMMO DIGITAL SCREENING W RAMEZ BILAT Routine 09/11/2024 2:28 PM EST Encounter for screening mammogram for malignant neoplasm of breast COMPREHENSIVE METABOLIC PANEL Routine 08/14/2024 12:19 PM EST Primary hypertension Hypothyroidism, unspecified type Mixed hyperlipidemia Depression, unspecified depression type Polyp of colon, unspecified part of colon, unspecified type Obesity (BMI 30-39.9) Asymmetric subjective nonpulsatile tinnitus without hearing loss, otoscopic finding, neurologic deficit, or head trauma Adult general medical examination LIPID PANEL WITH REFLEX TO DIRECT LDL Routine 08/14/2024 12:19 PM EST Primary hypertension Hypothyroidism, unspecified type Mixed hyperlipidemia Depression, unspecified depression type Polyp of colon, unspecified part of colon, unspecified type Obesity (BMI 30-39.9) Asymmetric subjective nonpulsatile tinnitus without hearing loss, otoscopic finding, neurologic deficit, or head trauma Adult general medical examination from Last 3 Months or Most Recently Relevant to Health Maintenance Results * Thyroid stimulating hormone with reflex to free t4 and free t3 (11/26/2024 3:19 PM EST) TSH 0.59 0.40 - 4.00 mcIU/mL LAB CHEMISTRY METHOD 11/26/2024 6:52 PM EST [facility] Blood Venous blood specimen / Unknown Venipuncture / Unknown 11/26/2024 3:19 PM EST 11/26/2024 3:19 PM EST Unique Lees MD LAB BLOOD ORDERABLES Final Resul t [facility] [address] [place] [address], [place] [phone] * MG Mammo Digital Screening w Ramez bilat (09/11/2024 2:28 PM EST) Anatomical Region Laterality Modality Breast Bilateral Mammography 09/11/2024 3:49 PM EST Impressions 09/11/2024 3:50 PM EST No evidence of breast malignancy. BI-RADS CATEGORY: 1 - NEGATIVE RECOMMENDATION: Screening bilateral mammogram is recommended in 1 year. Mammo Location: [facility], [address] [place] [address], [address], . -------- FINAL REPORT -------- Dictated By: Callie Richardson Dictated Date: 09/11/2024 15:49 ET Assigned Physician: Callie Richardson Reviewed and Electronically Signed By: Callie Richardson Signed Date: 09/11/2024 15:50 ET Workstation ID: [id number] Transcribed By: Self Edit Transcribed Date: 09/11/2024 15:49 ET Narrative 09/11/2024 3:50 PM EST CLINICAL: 58 years old, Female, routine annual exam. COMPARISON: 12/01/2021, 12/17/2019 and 12/13/2018 ?? TECHNIQUE: Bilateral MLO and CC views were obtained digitally with 3-D mammogram (digital breast tomosynthesis). Computer-aided detection was utilized in evaluation of this exam (CAD). FINDINGS: There is no evidence of suspicious mass or architectural distortion. ??No worrisome calcifications are evident. ??There has been no significant change from prior exam(s). ?? BREAST DENSITY: A - The breasts are almost entirely fatty. Procedure Note Callie Richardson MD - 09/11/2024 CLINICAL: 58 years old, Female, routine annual exam. COMPARISON: 12/01/2021, 12/17/2019 and 12/13/2018 TECHNIQUE: Bilateral MLO and CC views were obtained digitally with 3-Dmammogram (digital breast tomosynthesis). Computer-aided detection wasutilized in evaluation of this exam (CAD). FINDINGS: There is no evidence of suspicious mass or architectural distortion. Noworrisome calcifications are evident. There has been no significantchange from prior exam(s). BREAST DENSITY: A - The breasts are almost entirely fatty. IMPRESSION: No evidence of breast malignancy. BI-RADS CATEGORY: 1 - NEGATIVE RECOMMENDATION: Screening bilateral mammogram is recommended in 1 year. Mammo Location: [facility], [address] [place] [address], [address], . -------- FINAL REPORT -------- Dictated By: Callie Richardson Dictated Date: 09/11/2024 15:49 ET Assigned Physician: Callie Richardson Reviewed and Electronically Signed By: Callie Richardson Signed Date: 09/11/2024 15:50 ET Workstation ID: [id number] Transcribed By: Self Edit Transcribed Date: 09/11/2024 15:49 ET Uniuqe Lees MD IMG BI PROCEDURES Final Result * (ABNORMAL) Lipid panel with reflex to direct LDL (08/14/2024 12:19 PM EST) Cholesterol 245(H) 0 - 200 mg/dL LAB CHEMISTRY METHOD 08/14/2024 6:34 PM EST [facility] Triglycerides 65 0 - 150 mg/dL LAB CHEMISTRY METHOD 08/14/2024 6:34 PM EST [facility] HDL 58 >=40 mg/dL LAB CHEMISTRY METHOD 08/14/2024 6:34 PM EST [facility] LDL Calculated 174(H) 0 - 100 mg/dL LAB CHEMISTRY METHOD 08/14/2024 6:34 PM EST [facility] VLDL Cholesterol Magan 13 mg/dL LAB CHEMISTRY METHOD 08/14/2024 6:34 PM EST [facility] Non HDL Chol. (LDL+VLDL) 187(H) <145 mg/dL LAB CHEMISTRY METHOD 08/14/2024 6:34 PM EST [facility] Chol/HDL Ratio 4.2 0.0 - 4.4 LAB CHEMISTRY METHOD 08/14/2024 6:34 PM EST [facility] Blood Venous blood specimen / Unknown Venipuncture / Unknown 08/14/2024 12:19 PM EST 08/14/2024 12:20 PM EST Unique Lees MD LAB BLOOD ORDERABLES Final Resul t [facility] [address] [place] [address], [place] [phone] * Comprehensive metabolic panel (08/14/2024 12:19 PM EST) Sodium 137 133 - 145 mmol/L LAB CHEMISTRY METHOD 08/14/2024 6:34 PM [facility] Potassium 4.3 3.5 - 5.5 mmol/L LAB CHEMISTRY METHOD 08/14/2024 6:34 PM [facility] Chloride 105 96 - 110 mmol/L LAB CHEMISTRY METHOD 08/14/2024 6:34 PM [facility] CO2 26 21 - 32 mmol/L LAB CHEMISTRY METHOD 08/14/2024 6:34 PM [facility] Anion Gap 6 3 - 11 LAB CHEMISTRY METHOD 08/14/2024 6:34 PM [facility] Glucose 85 70 - 100 mg/dL LAB CHEMISTRY METHOD 08/14/2024 6:34 PM [facility] BUN 12 5 - 25 mg/dL LAB CHEMISTRY METHOD 08/14/2024 6:34 PM [facility] Creatinine 0.62 0.50 - 1.10 mg/dL LAB CHEMISTRY METHOD 08/14/2024 6:34 PM [facility] eGFR 104 >=60 mL/min/1. 73m2 LAB CHEMISTRY METHOD 08/14/2024 6:34 PM [facility] Comment:Calculation based on the??Chronic Kidney Disease Epidemiology Collaboration (CKD-EPI) equation refit??without adjustment for race. BUN/Creatinine Ratio 19.4 LAB CHEMISTRY METHOD 08/14/2024 6:34 PM [facility] Calcium 9.6 8.5 - 10.5 mg/dL LAB CHEMISTRY METHOD 08/14/2024 6:34 PM [facility] AST (SGOT) 12 10 - 42 unit/L LAB CHEMISTRY METHOD 08/14/2024 6:34 PM [facility] ALT (SGPT) 23 10 - 60 unit/L LAB CHEMISTRY METHOD 08/14/2024 6:34 PM [facility] Alkaline Phosphatase 115 42 - 121 unit/L LAB CHEMISTRY METHOD 08/14/2024 6:34 PM EST [facility] Total Protein 7.1 6.0 - 8.0 g/dL LAB CHEMISTRY METHOD 08/14/2024 6:34 PM EST [facility] Albumin 3.9 3.2 - 5.0 g/dL LAB CHEMISTRY METHOD 08/14/2024 6:34 PM [facility] Total Bilirubin 0.2 0.0 - 1.4 mg/dL LAB CHEMISTRY METHOD 08/14/2024 6:34 PM EST [facility] Blood Venous blood specimen / Unknown Venipuncture / Unknown 08/14/2024 12:19 PM EST 08/14/2024 12:20 PM EST Unique Lees MD LAB BLOOD ORDERABLES Final Resul t [facility] [address] [place], [place] [address] [phone] from Last 3 Months or Most Recently Relevant to Health Maintenance Insurance MEDICARE Care Teams Engrosser Relationship Specialty Start Date End Date Unique Lees MD [address] [address] PCP - General 09/05/22
== END 2024-12-10 14:56 | disposition home or self-care (01) ==
PROVIDERS: PCP Internal Medicine; Visit Provider Nurse Practitioner Family
DX: G47.33 Obstructive sleep apnea (adult) (pediatric) (principal); G57.12 Meralgia paresthetica, left lower limb; E66.9 Obesity, unspecified
CPT/HCPCS: 99214

== ENCOUNTER → 2024-12-10 14:27 | Outpatient (BNVA) | payer MEDICARE, SELFPAY | PROVIDERS: PCP Internal Medicine; Visit Provider Nurse Practitioner Family | DX: G47.33 Obstructive sleep apnea (adult) (pediatric) (principal); G57.12 Meralgia paresthetica, left lower limb; E66.9 Obesity, unspecified; R06.83 Snoring; Z91.199 Patient's noncompliance with other medical treatment and regimen due to unspecified reason; Z68.39 Body mass index [BMI] 39.0-39.9, adult | CPT/HCPCS: 99212 ==

== ENCOUNTER → 2024-12-23 20:30 | Outpatient (REF) | payer MEDICARE, SELFPAY | LOC: HO.SL 20:30 | PROVIDERS: PCP Student in an Organized Health Care Education/Training Program; Visit Provider Nurse Practitioner Family | DX: G47.10 Hypersomnia, unspecified (principal); R06.83 Snoring; G47.33 Obstructive sleep apnea (adult) (pediatric); E66.9 Obesity, unspecified | CPT/HCPCS: 95810 ==

== ENCOUNTER → 2024-12-23 20:30 | Outpatient (BNV) | payer MEDICARE, MEDICAID, SELFPAY | PROVIDERS: PCP Student in an Organized Health Care Education/Training Program; Visit Provider Psychiatry & Neurology Neurology | DX: R06.83 Snoring (principal); G47.10 Hypersomnia, unspecified | CPT/HCPCS: 95810 ==